=== PATIENT | male | born 1945 | race Hispanic/Latino ===

== ENCOUNTER → 2024-12-17 | Emergency (ER) | payer MEDICARE, MEDICAID ==
[~2024-12-17] VITALS: Ht 165.1 cm; Wt 56.2 kg
--- NOTE | 2024-12-17 01:31 | ERN ---
ED Note History of Present Illness Stated Complaint: NOSE BLEED Chief Complaint: Nosebleed Time Seen by MD: 01:00 Dictation: This is an 79-year-old male who presented to the emergency room on 12/16/2024 for evaluation of epistaxis from the right no nasopharynx. By the time patient came to the ER his epistaxis had stopped. Labs were obtained which showed hemoglobin of 13.8. Afrin nose spray was given and recommended to continue for 3 days or maximum 5 days. Apparently after patient went home he started having epistaxis from the right nasopharynx again and they went to a clinic in [facility] but he was not seen there and eventually they went to [facility] emergency room and a rhino rocket was placed in the right nasopharynx. He was discharged to home. Patient was complaining of pain in the right nose hence the son brought him back to [facility]. Patient does not have any active bleeding when we re-evaluated him. No fever chills or rigors. Temperature 97.8 pulse 92 respirations 20 blood pressure 138/78 pulse oximetry 97% on room air Allergies: Coded Allergies: No Known Drug Allergies (Unverified Allergy, Unknown, 12/16/24) Past Medical History Past Medical History: Diabetes-Type II, Hypertension Surgical History: Other Surgical History Other: BILATERAL EYES Family History: Negative Social History: Negative RN Note Reviewed/Agreed w/PFSH: Yes Review of System Dictation Constitutional: Negative for fever,chills, and weight loss Eyes: Negative for injury, pain,redness, and discharge ENT: Negative for injury,pain or swelling patient was seen at [facility] and a rhino rocket was inserted and he is complaining of pain in the right nasopharynx Cardiovascular: Negative for chest pain, palpitations, and edema Respiratory: Negative for shortness of breath, cough, and wheezing, Abdomen/GI: Negative for abdominal pain, nausea, vomiting, diarrhea, and constipation Back: Negative for injury and pain : Negative for injury, bleeding and discharge MS/Extremity: Negative for injury and deformity Skin: Negative for rash, and discoloration Neuro: Negative for headache, weakness, numbness, tingling, and seizure Psych: Negative for suicide ideation, homicidal ideation, and hallucinations Initial Vital Sign VS Vital Signs Date Time Temp Pulse Resp B/P (MAP) Pulse Ox O2 Delivery O2 Flow Rate FiO2 12/17/24 00:59 97.9 92 20 137/78 97 Room Air 12/17/24 01:07 0 21 Physical Exam Dictation General: awake, alert, NAD Head/Face: Normocephalic, atraumatic Eyes: PERRL, EOMI, vision at baseline ENT: oral cavity clear, TMs clear, no signs of infection right nasopharynx rhino rocket in place. No active bleeding noted Neck: Trachea midline, supple, no nuchal rigidity Cardiovascular: RRR, normal S1/S2, No MRGs, no JVD Respiratory: CTAB, no respiratory distress, No rales or wheezes Abdomen: Soft, non-tender, non-distended, normal bowel sounds, no guarding or rebound. Skin: Warm, dry, normal turgor, no rash MS/Extremity: Pulses equal, no cyanosis, neurovascular intact, FROM Neuro: COAx4, GCS 15, strength 5/5, CN 2-12 intact, normal cerebellar exam, normal gait, Psych: Normal behavior, mood, and affect normal Extremities-trace edema without any palpable cords, Homans sign is negative Results (Laboratory/Radiology) Labs Reviewed?: Yes ED Course ED Course Orders Procedure Category Date Status Time Acetaminophen 500mg PHA 12/17/24 Complete Tab (Tylenol 500mg T 01:30 Ceftriaxone 1g Vial PHA 12/17/24 Complete (Rocephine 1g Inj) 02:00 Current Medications Medications (Trade) Dose Ordered Sig/Shabbir Route PRN Reason Start Time Stop Time Status Last Admin Dose Admin Acetaminophen (TYLenol 500MG TAB) 1,000 mg ONCE ONCE PO 12/17/24 01:30 12/17/24 01:31 DC 12/17/24 01:18 Ceftriaxone Sodium (ROCEphine 1G INJ) 1 gm ONCE ONCE IVPB 12/17/24 02:00 12/17/24 02:01 DC 12/17/24 02:08 Vital Signs Date Time Temp Pulse Resp B/P (MAP) Pulse Ox O2 Delivery O2 Flow Rate FiO2 12/17/24 01:07 98.8 78 18 134/91 99 Room Air* 0 21 12/17/24 00:59 97.9 92 20 137/78 97 Room Air We will administer medications according to the patient's complaint. Once the results are available, will review and personally interpreted the labs to rule out any acute life-threatening emergency the trach require immediate intervention and treatment. I will then re-evaluate the patient after treatment and diagnostic exams have return to determine whether the patient requires any further testing, can safely be discharged home or need further admission to hospital for additional treatment and evaluation. Patient does not have any active epistaxis. The rhino rocket was placed earlier at [facility]. Patient responded to Tylenol I explained to the son and the patient that epistaxis may take 48 hours and MAC 72 hours to stop. Leaving the rhino rocket in for a longer period of time many to severe infection in the sinuses. They both verbalized full understanding and they will continue to leave the rhino rocket in the right nasopharynx and follow up with [facility]. Patient's son was concerned about his bleeding. Hemoglobin is very well-maintained at over 13.8. Medical Decision Making MDM Differential diagnosis: Pain from rhino rocket, early sinusitis, from Afrin Rationale: Tests considered and ordered secondary to shared decision making include: Previous outside records reviewed: Old ER visits. Risk of complication and/or morbidity or mortality of patient management: None Medications-Per medication reconciliation Need for hospitalization: Patient does not meet criteria for hospitalization. Need for emergency major/minor surgery: No There are no social concerns with this patient. Prescription drug management Prescriptions will include symptomatic care Patient's prior external medical records from other ER visits were reviewed by me as indicated. Prior testing and results from previous visits were reviewed. Prior tests were taken into account with medical decision making and resource utilization, independent historian/historians were used to obtain complete medical history. I independently interpreted the test that were performed, results were reviewed by me and considered findings on radiology if ordered. Medical management and examination interpretation discussions were had by me with other qualified healthcare professionals as indicated for the patient's care. DX & DISP Disposition: Discharge Departure Impression: Primary Impression: Epistaxis Additional Impression: Nose pain Condition: Stable Additional Instructions: Patient and the caregiver have been informed of all the diagnostic tests and the imaging conducted during the today's visit to the emergency room and has verbalized understanding of the results I have personally reviewed and interpreted all diagnostic exams performed here in the ER today as well as the vital signs documented by the nursing staff. The patient is now being discharged to home and should follow up with the primary care physician or the specialist as directed by the ER staff. I recommended that patient should get his rhino rocket removed at [facility] so if he rebleeds ENT evaluation maybe necessary in the services are not available here Referrals: NONE AISHA ALAS MD Dec 17, 2024 01:31
[2024-12-17 04:20] VITALS: BP 125/65; PULSE 80; RESP 18; TEMP 98.8; O2SAT 97
== END ==
LOC: EDH 00:57
DX: R04.0 Epistaxis (principal); J34.89 Other specified disorders of nose and nasal sinuses; E11.9 Type 2 diabetes mellitus without complications; I10 Essential (primary) hypertension
CPT/HCPCS: 99283; 96374; J0696